=== PATIENT | female | born 2005 | race Two or more races ===

== ENCOUNTER 2025-06-30 02:42 | Emergency (ER) | payer MEDICAID, SELFPAY ==
[2025-06-30 02:42] VITALS: BMI 45.7
[2025-06-30 02:53] VITALS: BP 134/86; PULSE 83; RESP 19; TEMP 36.7; O2SAT 99
--- NOTE | 2025-06-30 03:21 | XR_ITS ---
Examination: Retroperitoneal ultrasound, complete Technique: Multiple high resolution grayscale images of the retroperitoneum obtained, including kidneys and bladder. Exam date and time:June 30, 2025, 0356 hours INDICATIONS: Right lower abdominal pain flank pain nausea vomiting beginning today. FINDINGS: Right kidney 9.8 cm cortex 1.9 cm Left kidney 11.1 cm cortex 2.3 cm Mild renal parenchymal scar formation. No hydronephrosis Contracted urinary bladder IMPRESSION: Mild renal parenchymal scar formation, no hydronephrosis
--- NOTE | 2025-06-30 03:21 | XR_ITS ---
Examination: Transvaginal ultrasound of the pelvis, complete Technique: Transvaginal sonographic images pelvis performed using aiken scale imaging Exam date and time: June 30, 2025, 0410 hours INDICATIONS: Right lower abdominal pelvic pain nausea vomiting beginning today.. FINDINGS: Uterus 5.7 cm endometrial stripe 0.5 cm No uterine mass or intrauterine gestation Ovaries obscured by bowel gas IMPRESSION: Limited study No uterine mass or intrauterine gestation.
[2025-06-30 03:36] LABS: Collection Type, Urine Voided; RBC,Urine 0 /hpf (0-3); WBC,Urine 0 /hpf (0-5)
[2025-06-30] MEDS: ONDANSETRON ODT 4 MG TABRAP PO (03:36)
[2025-06-30 03:46] LABS: HCG Qualitative,Urine Negative
[2025-06-30 03:47] LABS: Amorphous Crystals,Urine Present (Absent); Bilirubin,Urine Negative (Negative); Blood,Urine Negative (Negative); Clarity,Urine Turbid (Clear/Hazy); Color,Urine Yellow (Lt Yel-Yel); Culture Indicated,Urine Not Indicated; Glucose, Urine Negative (Negative); Ketones,Urine Trace (Negative); Leukocyte Esterase,Urine Negative (Negative); Nitrite,Urine Negative (Negative); PH,Urine 7.5 (5.0-7.0); Protein,Urine 1+ (Neg - Trace); Specific Gravity,Urine 1.036 (1.001-1.035); Squamous Epithelial Cell,Urine 4 /hpf (0-5); Urobilinogen,Urine 2.0 mg/dL (0.0-1.0)
[2025-06-30 04:01] LABS: Basophils # (Auto) 0.1 Thou/mm3 (0.0-0.2); Basophils % (Auto) 1 % (0-2.5); Eosinophils # (Auto) 0.1 Thou/mm3 (0.0-0.5); Eosinophils % (Auto) 1 % (0-10); Hematocrit 41.7 % (36.0-46.0); Hemoglobin 14.2 g/dL (12.0-16.0); Immature Granulocytes Auto 0.02 Thou/mm3 (0.00-0.00); Lymphocytes # (Auto) 1.9 Thou/mm3 (1.0-4.8); Lymphocytes % (Auto) 21 % (10-50); Mean Corpuscular HGB Conc 34.1 g/dl (31.0-37.0); Mean Corpuscular Hemoglobin 30.1 pg (25.0-35.0); Mean Corpuscular Volume 89 fL (80-100); Monocytes # (Auto) 0.5 Thou/mm3 (0.0-0.8); Monocytes % (Auto) 6 % (0-12); Neutrophils # (Auto) 6.3 Thou/mm3 (1.8-7.7); Neutrophils % (Auto) 71 % (37-80); Nucleated Red Blood Cell # 0.00 Thou/mm3 (0.00-0.00); Nucleated Red Blood Cell % 0 /100 WBC (0); Platelet Count 263 Thou/mm3 (140-440); RDW Standard Deviation 39.6 fL (36.4-46.3); Red Blood Count 4.71 Miln/mm3 (4.00-5.20); White Blood Count 8.8 Thou/mm3 (4.5-11.0)
[2025-06-30 04:11] LABS: Amphetamine/Methamp Scrn,U Negative (Negative); Barbiturate Screen,Urine Negative (Negative); Benzodiazepines Screen,Urine Negative (Negative); Benzoylecgonine Screen, Ur Negative (Negative); Fentanyl Screen,Urine Negative (Negative); Opiate Screen,Urine Negative (Negative); THC Screen,Urine Negative (Negative)
[2025-06-30 04:23] LABS: Alanine Aminotransferase 96 U/L (10-49); Albumin, Serum 5.0 gm/dL (3.5-5.0); Albumin/Globulin Ratio 2.1 (1.2-2.2); Alkaline Phosphatase 79 U/L (46-116); Anion Gap 8 (7-16); Aspartate Amino Transferase 50 U/L (0-34); BUN/Creatinine Ratio 10 Ratio (12-20); Bilirubin,Total 0.6 mg/dL (0.3-1.2); Blood Urea Nitrogen 9 mg/dL (9-23); Calcium 10.3 mg/dL (8.3-10.6); Calcium (Corrected) 10.3 mg/dL (8.5-10.1); Carbon Dioxide 30.0 mMol/L (20.0-31.0); Chloride 105 mMol/L (98-107); Creatinine (Component) 0.9 mg/dL (0.6-1.3); Estimated Creatinine Clearance 118.7 mL/min (>60); Globulin 2.4 gm/dL (2.3-3.5); Glucose 130 mg/dL (74-106); Lipase 33 U/L (12-53); Osmolality,Calculated 285 (275-295); Potassium 4.1 mMol/L (3.4-5.1); Sodium 143 mMol/L (136-145); Total Protein 7.4 gm/dL (5.7-8.2); eGFR > 60 See Note
[2025-06-30] MEDS: KETOROLAC INJ 60 MG/2 ML VIAL IM (04:30)
--- NOTE | 2025-06-30 04:56 | PRELIM_ITS ---
Renal/Retroperitoneal ultrasound with Doppler. June 30, 2025 0356 hours Clinical history: r/o stone Technique: Duplex scan of the bilateral renal arterial and venous tree was performed utilizing 2D grayscale imaging, Doppler spectral analysis and color flow. Comparison: None. Findings: Right: The right kidney measures 9.8 cm and is unremarkable. There is no hydronephrosis or renal calculus. The corticomedullary differentiation is maintained. Questionable mild parenchymal scarring. Left: The left kidney measures 11.1 cm and is unremarkable. There is no hydronephrosis or renal calculus. The corticomedullary differentiation is maintained. Questionable mild parenchymal scarring. The urinary bladder is nondistended, limited evaluation. No abnormalities by Doppler. Impression: No kidney stones. No hydronephrosis. Questionable mild bilateral parenchymal scarring. Report Electronically Signed By: Jm Alas 06/30/2025 4:56:28 AM [EST]
--- NOTE | 2025-06-30 05:11 | PRELIM_ITS ---
Pelvic ultrasound (transvaginal) with Doppler. June 30, 2025 04:10 hours. Clinical history: Right lower quadrant/pelvic pain. Technique: Real-time, grayscale, transvaginal pelvic ultrasound was performed using Duplex scanning including arterial inflow, venous outflow, color and spectral Doppler. Comparison: No prior study is available for comparison. Findings: The study is limited by bowel gas. The uterus is normal in size, measuring 5.7 x 2.1 x 2.4 cm. The endometrium is unremarkable and measures 5.3 mm. A small cystic lesion is present in the cervix, measuring 0.4 cm. The ovaries were not visualized. There is no free fluid on the submitted images. No abnormalities were detected by Doppler. Impression: The ovaries were not visualized. Consider correlation with MRI if clinically indicated. Unremarkable pelvic sonogram. Report Electronically Signed By: Jm Alas 06/30/2025 5:10:54 AM [EST]
--- NOTE | 2025-06-30 05:23 | PD.EDRME ---
Rapid Medical Screening Exam E Arrival date/time: 06/30/25 02:42 20F with no significant PMH presents to ED with 2 days of sudden RLQ/pelvic pain and N/V. Patient denies diarrhea, dysuria/hematuria, and vaginal bleeding. Chief Complaint: Abdominal Pain Time Seen by Provider: 06/30/25 03:21 Vital signs: Vital Signs Temperature 98.1 F 06/30/25 02:53 Pulse Rate 83 06/30/25 02:53 Respiratory Rate 19 06/30/25 02:53 Blood Pressure 134/86 H 06/30/25 02:53 Pulse Oximetry (%) 99 06/30/25 02:53 Oxygen Delivery Method Room Air 06/30/25 02:53
--- NOTE | 2025-06-30 08:21 | PC.NURSE ---
called patient in lobby/outside no answer @ 0300
--- NOTE | 2025-06-30 08:47 | PC.NURSE ---
called patient from lobby/outside no answer x2 @ [id number]
--- NOTE | 2025-06-30 09:06 | PC.NURSE ---
called pt back, no answer at this time
== END 2025-06-30 09:06 | disposition left against medical advice (07) ==
LOC: SERX 03:27
PROVIDERS: Physician Assistant; Emergency Provider Emergency Medicine
DX: R10.31 Right lower quadrant pain (principal); R10.2 Pelvic and perineal pain; R11.2 Nausea with vomiting, unspecified; Z53.29 Procedure and treatment not carried out because of patient's decision for other reasons
CPT/HCPCS: 36415; 76770; 76830; 80053; 80307; 81001; 81025; 83690; 85025; 96372; 99283; J1885; Q0162